=== PATIENT | male | born 1935 | race Caucasian/White ===

== ENCOUNTER 2020-11-10 11:11 | Outpatient (CLI) | payer MEDICARE, BC | END 2020-11-10 11:12 | disposition home or self-care (01) | LOC: NAV RAD 11:11 | PROVIDERS: ATTEND Family Medicine | DX: R11.2 Nausea with vomiting, unspecified (principal); R93.5 Abnormal findings on diagnostic imaging of other abdominal regions, including retroperitoneum; R91.8 Other nonspecific abnormal finding of lung field | CPT/HCPCS: 74019 ==